=== PATIENT | female | born 1995 | race African-American/Black ===

== ENCOUNTER 2021-07-03 08:00 | Outpatient (CLI) | payer OTHER | END 2021-07-03 23:59 | LOC: LAB 08:00 | PROVIDERS: ATTEND Family Medicine | DX: U07.1 COVID-19 (principal) ==

== ENCOUNTER 2021-10-25 20:33 | Emergency (ER) | payer OTHER ==
[2021-10-25] MEDS ORDERED: HYDROcod/ACETAM 5/325 MG TABLET PO STA (21:32)
[2021-10-25] MEDS ORDERED: KETOROLAC 60 MG/2 ML VIAL IM STA (21:32)
--- NOTE | 2021-10-25 21:35 | ED Physician Documentation ---
History of Present Illness - Stated complaint Stated Complaint: SOA, CONGESTION - Chief complaint Chief Complaint: General - History obtained from History obtained from: Patient - Additonal information Additional information: The patient comes to the emergency department chief complaint of nasal congestion, headache, sore throat, and a sense of shortness of breath. She states the symptoms began a couple of days ago and that she has just been feeling miserable. The patient denies any neck pain or stiffness. No visual changes. She has not really had much of a cough. She does have mild nausea but no vomiting. No sick contacts that she knows of. The patient significant other is not ill. Patient states she is otherwise fairly healthy and has had both her COVID and influenza vaccines this year. No other complaints at this time. Review of Systems Ten Systems: 10 systems reviewed and negative Constitutional: reports: Reviewed and negative Eyes: reports: Reviewed and negative Ears: reports: Reviewed and negative Nose: reports: Rhinorrhea / runny nose, Congestion Throat: reports: Sore throat Cardiac: reports: Reviewed and negative Respiratory: reports: Dyspnea GI: reports: Reviewed and negative : reports: Reviewed and negative Skin: reports: Reviewed and negative Musculoskeletal: reports: Reviewed and negative Neurologic: reports: Reviewed and negative Psychiatric: reports: Reviewed and negative Endocrine: reports: Reviewed and negative Immunocompromised: reports: Reviewed and negative PD PAST MEDICAL HISTORY - Allergies Allergies/Adverse Reactions: Allergies Allergy/AdvReac Type Severity Reaction Status Date / Time No Known Drug Allergies Allergy Verified 10/25/21 20:36 PD ED PE NORMAL - Vitals Vital signs reviewed: Yes - General General: Alert and oriented X 3, No acute distress, Well developed/nourished - HEENT HEENT: Atraumatic (Muscular tenderness over forehead and bilateral temples as well as musculature at base of neck.), PERRL, EOMI, Moist mucous membranes, Pharynx benign, Other (Clear rhinorrhea especially on the left.) - Neck Neck: Supple, no meningeal sign, No adenopathy - Cardiac Cardiac: RRR, No murmur - Respiratory Respiratory: Clear bilaterally - Abdomen Abdomen: Normal bowel sounds, Soft, Non tender, Non distended - Derm Derm: Warm and dry - Extremities Extremities: No deformity - Neuro Neuro: Alert and oriented X 3 - Psych Psych: Normal mood, Normal affect Results - Vitals Vitals: Vital Signs - 24 hr 10/25/21 10/25/21 20:36 20:48 Temperature 36.5 C Heart Rate 86 88 Respiratory 16 22 Rate Blood Pressure 130/80 125/68 O2 Saturation 100 100 Oxygen O2 Source Room air PD MEDICAL DECISION MAKING - ED course Complexity details: reviewed results, re-evaluated patient, considered differential, d/w patient ED course: Patient was worked up with chest x-ray which was negative and a viral panel which is pending at this time. She was given Toradol and a tablet of Vicodin for symptomatic relief. Patient requested a work note for her job at the [employer]. We have discussed the need for follow-up with her primary doctor as well as the usual indications for return. Departure - Departure Clinical Impression: Viral syndrome Headache Qualifiers: Headache type: tension-type Headache chronicity pattern: acute headache Intractability: not intractable Qualified Code(s): G44.209 - Tension-type hea dache, unspecified, not intractable Condition: Stable Instructions: ED Viral Syndrome, ED Cephalgia Unspecified Comments: Your chest x-ray looks good. Your viral panel is pending at this time and should be back in the next several hours. We will call you for any significant positive results; however, if you wish to follow the results yourself, you may go to the hospital website at [email or web address], click on the "my [facility]" tab, and sign up for the patient portal. Please be sure to drink plenty of fluids and take ibuprofen and Tylenol as needed for discomfort. You should follow-up with your primary doctor for any further concerns. A work note has been provided to give you some time off. Forms: Activity restrictions
--- NOTE | 2021-10-25 21:37 | XRAY Report ---
PROCEDURE: Chest 1 View X-Ray INDICATIONS: sob TECHNIQUE: One view of the chest was acquired. COMPARISON: None. FINDINGS: Surgical changes and devices: None. Lungs and pleura: No pleural effusions or pneumothorax. Lungs are clear. Mediastinum: Mediastinal contours appear normal. Heart size is normal. Bones and chest wall: No suspicious bony lesions. Overlying soft tissues appear unremarkable. IMPRESSION: 1. No acute cardiopulmonary disease. Reviewed by: Bon Michaels MD on 10/25/2021 9:36 PM PDT Approved by: Bon Michaels MD on 10/25/2021 9:36 PM PDT Station ID: [id number]
[2021-10-25 22:22] VITALS: BP 131/74
[2021-10-25 22:40] LABS: B. PARAPERTUSSIS- RESP PCR PAN NOT DETECTED; B. PERTUSSIS- RESP PCR PANEL NOT DETECTED; C. PNEUMONIAE- RESP PCR PANEL NOT DETECTED; CORONAVIRUS 229E-RESP PCR NOT DETECTED; CORONAVIRUS HKU1-RESP PCR DETECTED; CORONAVIRUS NL63-RESP PCR NOT DETECTED; CORONAVIRUS OC43-RESP PCR NOT DETECTED; HUMAN METAPNEUMOVIRUS NOT DETECTED; INFLUENZA A- RESP PCR PANEL NOT DETECTED; INFLUENZA B - RESP PCR PANEL NOT DETECTED; M. PNEUMONIAE- RESP PCR PANEL NOT DETECTED; PARAINFLUENZA VIRUS 1 NOT DETECTED; PARAINFLUENZA VIRUS 2 NOT DETECTED; PARAINFLUENZA VIRUS 3 NOT DETECTED; PARAINFLUENZA VIRUS 4 NOT DETECTED; RHINOVIRUS/ENTEROVIRUS NOT DETECTED; RSV- RESP PCR PANEL NOT DETECTED; SARS-CoV-2 -RESP PCR PANEL NOT DETECTED
== END 2021-10-25 22:23 | disposition home or self-care (01) ==
LOC: ED 20:33
DX: B34.9 Viral infection, unspecified (principal); G44.209 Tension-type headache, unspecified, not intractable; Z20.822 Contact with and (suspected) exposure to COVID-19
CPT/HCPCS: 71045; 87633; 99282; 99284; A9270